=== PATIENT | female | born 1970 | race Caucasian/White ===

== ENCOUNTER → 2019-11-18 | Outpatient (CLI) | payer OTHER ==
[2019-11-18 11:00] VITALS: BP 112/71
--- NOTE | 2019-11-18 11:00 | NUR ---
PATIENT ARRIVED TO UNIT VIA AMBULATION. PATIENTS VS OBTAINED AND ARE STABLE. PATIENT BLADDER SCANNED WITH A RESULT OF <120CC, PATIENT ASKED TO VOID AND THEN RESCANNED. WITH A RESULT OF <60CC. RESULTS FAXED TO DR. FAJARDO'S OFFICE.
== END | disposition home or self-care (01) ==
LOC: US 11:00
PROVIDERS: ATTEND Family Medicine
DX: R35.0 Frequency of micturition (principal); R39.15 Urgency of urination; R30.0 Dysuria
CPT/HCPCS: 51798